=== PATIENT | male | born 1950 | race Caucasian/White ===

== ENCOUNTER → 2017-01-08 | Outpatient (CLI) | payer MEDICARE | END | disposition home or self-care (01) | LOC: GMAL 10:56 | PROVIDERS: ATTEND Family Medicine | DX: M10.9 Gout, unspecified (principal) ==

== ENCOUNTER → 2017-06-13 | Outpatient (CLI) | payer MEDICARE ==
--- NOTE | 2017-06-16 07:50 | US ---
Retroperitoneal abdomen sonogram CLINICAL HISTORY: Abdominal aortic aneurysm FINDINGS: Infrarenal abdominal aortic aneurysm measures up to 4 cm transverse mid infrarenal aorta on images provided. The images do not appear accurate. Transverse dimension measurement shows an odd morphology not typically seen, possibly artifact related to body habitus IMPRESSION: Recommend CT for further evaluation. Atherosclerotic aorta. Measurements of the aorta by sonogram believed inaccurate because of body habitus Electronically signed by: Justin Perez MD 06/16/2017 7:49 AM CDT
--- NOTE | 2017-06-16 08:00 | CT ---
EXAM DESCRIPTION: CT chest with contrast CLINICAL HISTORY: Localized swelling, mass and lump, trunk COMPARISON: None Available. TECHNIQUE: Contrast-enhanced spiral CT with intravenous iodinated nonionic contrast. Coronal and sagittal reformatted images. This exam was performed according to our departmental dose-optimization program, which includes automated exposure control, adjustment of the mA and/or kV according to patient size and/or use of iterative reconstruction technique. FINDINGS: No pulmonary edema, infiltrate or effusion No mass or adenopathy in the chest Normal heart size. Mildly tortuous aorta Mild fatty infiltration of the liver. 3.8 cm simple cyst left kidney. No mass or adenopathy otherwise in the upper abdomen Thoracic spondylosis. No diagnostic acute bony abnormality IMPRESSION: No acute abnormality. No mass or adenopathy seen in the chest Electronically signed by: Justin Perez MD 06/16/2017 7:59 AM CDT
== END | disposition home or self-care (01) ==
LOC: CT 10:26
PROVIDERS: ATTEND Family Medicine
DX: R22.2 Localized swelling, mass and lump, trunk (principal); R09.89 Other specified symptoms and signs involving the circulatory and respiratory systems; N28.1 Cyst of kidney, acquired

== ENCOUNTER → 2017-06-19 | Outpatient (CLI) | payer MEDICARE ==
--- NOTE | 2017-06-19 10:22 | CT ---
EXAM DESCRIPTION: CTA Abdomen CLINICAL HISTORY: AAA COMPARISON: Ultrasound June 13, 2017 TECHNIQUE: CTA of the abdomen was performed with IV contrast including 3-D reformats. This exam was performed according to our departmental dose-optimization program, which includes automated exposure control, adjustment of the mA and/or kV according to patient size and/or use of iterative reconstruction technique. FINDINGS: There is no abdominal aortic aneurysm or dissection. Mild mural calcifications are noted in the abdominal aorta without luminal narrowing. There is some calcification at the origin of the celiac axis without significant luminal narrowing. The superior mesenteric artery is unremarkable. There is some calcification at the origin of both renal arteries also without significant luminal narrowing. The inferior mesenteric artery is perfused. No common iliac artery aneurysm or stenosis. There is diffuse fatty infiltration of the liver. There is a 3.9 cm left renal cyst with a few smaller cysts elsewhere in both kidneys. No concerning bone lesion. IMPRESSION: Mild atherosclerotic vascular disease, but no abdominal aortic aneurysm. Diffuse fatty infiltration of the liver and other nonacute findings as detailed above. Electronically signed by: Fidencio Baldwin MD 06/19/2017 10:21 AM CDT
== END | disposition home or self-care (01) ==
LOC: CT 14:39
PROVIDERS: ATTEND Family Medicine
DX: I71.4 Abdominal aortic aneurysm, without rupture (principal)

== ENCOUNTER → 2018-05-22 | Outpatient (CLI) | payer MEDICARE | LOC: GMAL 10:30 | PROVIDERS: ATTEND Family Medicine | DX: D51.8 Other vitamin B12 deficiency anemias (principal); R53.83 Other fatigue; E55.9 Vitamin D deficiency, unspecified ==

== ENCOUNTER → 2019-06-11 | Outpatient (CLI) | payer MEDICARE | LOC: GMAL 10:21 | PROVIDERS: ATTEND Family Medicine | DX: D51.8 Other vitamin B12 deficiency anemias (principal); Z12.5 Encounter for screening for malignant neoplasm of prostate; R53.83 Other fatigue; E55.9 Vitamin D deficiency, unspecified; E78.2 Mixed hyperlipidemia; Z79.899 Other long term (current) drug therapy | CPT/HCPCS: 82306; 82607; 84443; G0103 ==